=== PATIENT | female | born 1935 | race Hispanic/Latino ===

== ENCOUNTER 2017-07-12 12:38 | Outpatient (CLI) | payer MEDICARE ==
--- NOTE | 2017-07-12 15:01 | Cat Scan Report ---
FINAL REPORT EXAM: CT CHEST W CON HISTORY: LT VOCAL CORDPARESIS TECHNIQUE: CT of chest with IV contrast. Coronal and sagittal reconstructed images provided. PRIORS: None currently available. FINDINGS: 5.8 mm pleural-based solid nodule along the left major fissure series 3:104. 5.6 mm subpleural solid nodule left upper lobe series 3:111. 5.1 mm solid nodule in the lingula series 3:116. Interseptal thickening particularly to periphery of both lungs identified. Areas of ground-glass opacity noted. In both lower lungs subtle areas of honeycombing noted particularly in the right lower lobe. No pneumothorax. No distinct consolidation. No effusion. No aortic aneurysm or dissection. Moderate aortic atherosclerotic disease. Main pulmonary artery is unremarkable. Heart size is within normal limits. No pericardial effusion. Heterogenous thyroid gland. Nodules not excluded but evaluation with thyroid ultrasound recommended if clinically indicated. Axillary regions are unremarkable. No hilar mediastinal mass or significant adenopathy. A few mildly prominent subcentimeter mediastinal lymph nodes are nonspecific. Possibly reactive or congenital. Images of the esophagus are unremarkable. No suspicious osseous lesions on this limited examination of the skeleton. Metastatic disease better evaluated with bone scan. Degenerative changes are present in the spine. Mild dextrocurvature or scoliosis. IMPRESSION: Suspect pneumonitis. Differential diagnosis includes fibrotic-type, connective tissue, or drug related pneumonitis. Other considerations include pulmonary vascular congestion with developing edema. Pulmonary nodules. A few mildly prominent subcentimeter mediastinal lymph nodes are nonspecific. Possibly reactive or congenital. No mediastinal mass or adenopathy.
--- NOTE | 2017-07-12 15:10 | Cat Scan Report ---
FINAL REPORT EXAM: CT NECK W CON HISTORY: LEFT VOCAL CORDPARESIS TECHNIQUE: CT of the neck with IV contrast. Coronal and sagittal reconstructed imaging provided. PRIORS: None currently available. FINDINGS: NASOPHARYNX: No large tonsils. No distinct lesions. OROPHARYNX: Union tonsils are intact. The floor of mouth is relatively unremarkable. PHARYNX: Epiglottis is unremarkable. No asymmetrical prominence of the aryepiglottic folds. Parapharyngeal regions are unremarkable. LARYNX: True and false cords appear relatively symmetrical. No abnormal enhancement or distinct lesion identified. Tortuous carotids. Retropharyngeal courses. Vessels are patent. No aneurysm, dissection, or thrombosis. Carotid vascular calcifications are moderate to severe particularly at the bifurcation and proximal ICAs. Parotid glands demonstrate normal appearance. The submandibular glands are unremarkable. The thyroid gland is unremarkable. Partially imaged paranasal sinuses are unremarkable. Partially imaged temporal bones are unremarkable. Cervical spondylosis. Reversal of the cervical alignment centered at C5-C6. 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 Partial images of the lungs are unremarkable. IMPRESSION: No convincing evidence on CT of left cord paralysis. No enhancing lesion. No left apical mass. No mediastinal mass. Tortuous carotids with for retropharyngeal courses. Moderate to severe calcifications at the carotid bifurcations/proximal ICAs. July 12, 2017 at 1205 PST: I discussed findings over the phone with Dr. Adam.
== END 2017-07-12 12:39 | disposition home or self-care (01) ==
LOC: CT 12:38
PROVIDERS: ATTEND Otolaryngology
DX: J38.00 Paralysis of vocal cords and larynx, unspecified (principal); I65.23 Occlusion and stenosis of bilateral carotid arteries; R91.1 Solitary pulmonary nodule; I70.0 Atherosclerosis of aorta; M47.892 Other spondylosis, cervical region
CPT/HCPCS: 36415; 70491; 71260; 82565; 84520; Q9967